=== PATIENT | male | born 2000 | race Two or more races ===

== ENCOUNTER 2022-11-30 18:25 | Emergency (ER) | payer OTHER ==
[~2022-11-30] VITALS: Ht 167.6 cm; Wt 86.7 kg
[2022-11-30] MEDS ORDERED: ACET-1158 PO (22:15)
[2022-11-30] MEDS ORDERED: CYCL-837 PO (22:15)
[2022-11-30 23:21] VITALS: BP 137/79
== END 2022-11-30 23:21 | disposition home or self-care (01) ==
LOC: ER 18:26
DX: S16.1XXA Strain of muscle, fascia and tendon at neck level, initial encounter (principal); V49.88XA Car occupant (driver) (passenger) injured in other specified transport accidents, initial encounter; Y93.89 Activity, other specified; Y92.410 Unspecified street and highway as the place of occurrence of the external cause; Y99.8 Other external cause status